=== PATIENT | male | born 1990 | race Asian ===

== ENCOUNTER 2020-02-17 03:41 | Emergency (ER) | payer OTHER ==
[~2020-02-17] VITALS: Ht 167.6 cm; Wt 73.9 kg
[2020-02-17 03:43] VITALS: BP 127/62
--- NOTE | 2020-02-17 04:17 | NUR ---
covid swab sent to lab
== END 2020-02-17 04:17 | disposition home or self-care (01) ==
LOC: ER 03:50
DX: Z11.59 Encounter for screening for other viral diseases (principal); Z91.013 Allergy to seafood
CPT/HCPCS: 99283; C9803; U0003

== ENCOUNTER 2020-04-27 02:43 | Emergency (ER) | payer OTHER ==
[~2020-04-27] VITALS: Ht 167.6 cm; Wt 63.5 kg
[2020-04-27 02:47] VITALS: BP 124/77
--- NOTE | 2020-04-27 02:57 | NUR ---
covid swab collected. sent to lab
== END 2020-04-27 02:58 | disposition home or self-care (01) ==
LOC: ER 02:44
DX: Z20.828 Contact with and (suspected) exposure to other viral communicable diseases (principal); Z91.013 Allergy to seafood
CPT/HCPCS: 99283; C9803; U0003

== ENCOUNTER 2020-05-02 04:38 | Emergency (ER) | payer OTHER ==
[~2020-05-02] VITALS: Ht 167.6 cm; Wt 63.5 kg
[2020-05-02 04:40] VITALS: BP 128/62
== END 2020-05-02 04:54 | disposition home or self-care (01) ==
LOC: ER 04:38
DX: Z20.828 Contact with and (suspected) exposure to other viral communicable diseases (principal)
CPT/HCPCS: 99283; C9803; U0003

== ENCOUNTER 2020-05-09 04:32 | Emergency (ER) | payer OTHER ==
[~2020-05-09] VITALS: Ht 167.6 cm; Wt 63.5 kg
[2020-05-09 04:33] VITALS: BP 124/82
== END 2020-05-09 05:04 | disposition home or self-care (01) ==
LOC: ER 04:32
DX: Z20.828 Contact with and (suspected) exposure to other viral communicable diseases (principal); Z91.013 Allergy to seafood
CPT/HCPCS: 99283; C9803; U0003

== ENCOUNTER 2020-05-16 05:54 | Emergency (ER) | payer OTHER ==
[~2020-05-16] VITALS: Ht 167.6 cm; Wt 63.5 kg
[2020-05-16 05:55] VITALS: BP 124/62
== END 2020-05-16 06:19 | disposition home or self-care (01) ==
LOC: ER 05:56
DX: Z20.828 Contact with and (suspected) exposure to other viral communicable diseases (principal); Z91.013 Allergy to seafood
CPT/HCPCS: 99283; C9803; U0003

== ENCOUNTER 2020-05-23 04:46 | Emergency (ER) | payer OTHER ==
[~2020-05-23] VITALS: Ht 167.6 cm; Wt 63.5 kg
[2020-05-23 04:50] VITALS: BP 128/69
== END 2020-05-23 05:14 | disposition home or self-care (01) ==
LOC: ER 04:46
DX: Z20.828 Contact with and (suspected) exposure to other viral communicable diseases (principal)
CPT/HCPCS: 99283; C9803; U0003

== ENCOUNTER 2020-05-30 04:22 | Emergency (ER) | payer OTHER ==
[~2020-05-30] VITALS: Ht 167.6 cm; Wt 63.5 kg
[2020-05-30 04:28] VITALS: BP 127/76
== END 2020-05-30 04:45 | disposition home or self-care (01) ==
LOC: ER 04:27
DX: Z20.828 Contact with and (suspected) exposure to other viral communicable diseases (principal); Z91.013 Allergy to seafood
CPT/HCPCS: 99283; C9803; U0003

== ENCOUNTER 2020-06-08 04:29 | Emergency (ER) | payer OTHER ==
[~2020-06-08] VITALS: Ht 167.6 cm; Wt 63.5 kg
[2020-06-08 04:31] VITALS: BP 126/67
--- NOTE | 2020-06-08 04:50 | NUR ---
COVID SWAB SENT TO LAB
== END 2020-06-08 04:51 | disposition home or self-care (01) ==
LOC: ER 04:30
DX: Z20.828 Contact with and (suspected) exposure to other viral communicable diseases (principal); Z91.013 Allergy to seafood
CPT/HCPCS: 99283; C9803; U0003

== ENCOUNTER 2020-06-12 01:55 | Emergency (ER) | payer OTHER ==
[~2020-06-12] VITALS: Ht 167.6 cm; Wt 65.3 kg
[2020-06-12 02:13] VITALS: BP 131/77
== END 2020-06-12 03:08 | disposition home or self-care (01) ==
LOC: ER 02:03
DX: Z20.828 Contact with and (suspected) exposure to other viral communicable diseases (principal); Z91.013 Allergy to seafood
CPT/HCPCS: 99283; C9803; U0003

== ENCOUNTER 2020-06-20 04:58 | Emergency (ER) | payer OTHER ==
[~2020-06-20] VITALS: Ht 167.6 cm; Wt 65.3 kg
[2020-06-20 04:59] VITALS: BP 144/84
== END 2020-06-20 05:10 | disposition home or self-care (01) ==
LOC: ER 04:58
DX: Z20.828 Contact with and (suspected) exposure to other viral communicable diseases (principal); Z91.013 Allergy to seafood
CPT/HCPCS: 99283; C9803; U0003

== ENCOUNTER 2020-06-29 04:04 | Emergency (ER) | payer OTHER ==
[~2020-06-29] VITALS: Ht 167.6 cm; Wt 77.1 kg
[2020-06-29 04:07] VITALS: BP 127/68
== END 2020-06-29 04:57 | disposition home or self-care (01) ==
LOC: ER 04:05
DX: Z20.828 Contact with and (suspected) exposure to other viral communicable diseases (principal); Z91.013 Allergy to seafood
CPT/HCPCS: 99283; C9803; U0003

== ENCOUNTER 2020-07-05 04:44 | Emergency (ER) | payer OTHER ==
[~2020-07-05] VITALS: Ht 165.1 cm; Wt 74.8 kg
[2020-07-05 04:48] VITALS: BP 124/61
--- NOTE | 2020-07-05 05:00 | NUR ---
covid swab collected. sent to lab
== END 2020-07-05 05:00 | disposition home or self-care (01) ==
LOC: ER 04:44
DX: Z20.828 Contact with and (suspected) exposure to other viral communicable diseases (principal)
CPT/HCPCS: 99283; C9803; U0003

== ENCOUNTER 2020-07-08 04:54 | Emergency (ER) | payer OTHER ==
[~2020-07-08] VITALS: Ht 165.1 cm; Wt 58.1 kg
[2020-07-08 04:57] VITALS: BP 124/75
== END 2020-07-08 05:12 | disposition home or self-care (01) ==
LOC: ER 04:56
DX: Z20.828 Contact with and (suspected) exposure to other viral communicable diseases (principal)
CPT/HCPCS: 99283; C9803; U0003

== ENCOUNTER 2020-07-11 04:24 | Emergency (ER) | payer OTHER ==
[~2020-07-11] VITALS: Ht 165.1 cm; Wt 58.1 kg
[2020-07-11 04:38] VITALS: BP 121/84
== END 2020-07-11 04:53 | disposition home or self-care (01) ==
LOC: ER 04:25
DX: Z20.828 Contact with and (suspected) exposure to other viral communicable diseases (principal)
CPT/HCPCS: 87426; 99283; C9803; U0003

== ENCOUNTER 2020-07-14 02:52 | Emergency (ER) | payer OTHER ==
[~2020-07-14] VITALS: Ht 165.1 cm; Wt 58.1 kg
[2020-07-14 02:57] VITALS: BP 128/76
== END 2020-07-14 03:17 | disposition home or self-care (01) ==
LOC: ER 02:54
DX: U07.1 COVID-19 (principal)
CPT/HCPCS: 99283; C9803; U0003

== ENCOUNTER 2020-07-14 19:06 | Emergency (ER) | payer OTHER ==
[~2020-07-14] VITALS: Ht 165.1 cm; Wt 74.8 kg
[2020-07-14 19:09] VITALS: BP 132/64
== END 2020-07-14 22:38 | disposition home or self-care (01) ==
LOC: ER 19:08
DX: U07.1 COVID-19 (principal)
CPT/HCPCS: 87426; 99283; C9803 ×2; U0003

== ENCOUNTER 2020-10-29 01:20 | Emergency (ER) | payer OTHER ==
[~2020-10-29] VITALS: Ht 165.1 cm; Wt 74.8 kg
[2020-10-29 01:22] VITALS: BP 123/62
== END 2020-10-29 02:28 | disposition home or self-care (01) ==
LOC: ER 01:26
DX: Z20.822 Contact with and (suspected) exposure to COVID-19 (principal); Z91.013 Allergy to seafood
CPT/HCPCS: 99283; C9803; U0003

== ENCOUNTER 2020-11-12 01:01 | Emergency (ER) | payer OTHER ==
[~2020-11-12] VITALS: Ht 165.1 cm; Wt 74.8 kg
[2020-11-12 01:05] VITALS: BP 119/68
== END 2020-11-12 01:34 | disposition home or self-care (01) ==
LOC: ER 01:02
DX: Z20.822 Contact with and (suspected) exposure to COVID-19 (principal)
CPT/HCPCS: 99283; C9803; U0003

== ENCOUNTER 2020-11-18 00:46 | Emergency (ER) | payer OTHER ==
[~2020-11-18] VITALS: Ht 165.1 cm; Wt 74.8 kg
[2020-11-18 00:46] VITALS: BP 123/65
== END 2020-11-18 02:18 | disposition home or self-care (01) ==
LOC: ER 00:51
DX: Z20.822 Contact with and (suspected) exposure to COVID-19 (principal)
CPT/HCPCS: 99283; C9803; U0003

== ENCOUNTER 2020-11-27 02:12 | Emergency (ER) | payer OTHER ==
[~2020-11-27] VITALS: Ht 165.1 cm; Wt 74.8 kg
[2020-11-27 02:17] VITALS: BP 123/70
== END 2020-11-27 03:52 | disposition home or self-care (01) ==
LOC: ER 02:14
DX: Z20.822 Contact with and (suspected) exposure to COVID-19 (principal)
CPT/HCPCS: 99283; C9803; U0003

== ENCOUNTER 2020-12-02 00:30 | Emergency (ER) | payer OTHER ==
[~2020-12-02] VITALS: Ht 165.1 cm; Wt 74.8 kg
[2020-12-02 00:30] VITALS: BP 124/75
== END 2020-12-02 01:55 | disposition home or self-care (01) ==
LOC: ER 00:34
DX: Z20.822 Contact with and (suspected) exposure to COVID-19 (principal); Z91.013 Allergy to seafood
CPT/HCPCS: 99283; C9803; U0003

== ENCOUNTER 2020-12-10 03:35 | Emergency (ER) | payer OTHER ==
[~2020-12-10] VITALS: Ht 165.1 cm; Wt 74.8 kg
[2020-12-10 03:40] VITALS: BP 121/63
== END 2020-12-10 04:11 | disposition home or self-care (01) ==
LOC: ER 03:40
DX: Z20.822 Contact with and (suspected) exposure to COVID-19 (principal); Z91.013 Allergy to seafood
CPT/HCPCS: 99283; C9803; U0003

== ENCOUNTER 2021-01-01 01:48 | Emergency (ER) | payer OTHER ==
[~2021-01-01] VITALS: Ht 165.1 cm; Wt 74.8 kg
[2021-01-01 01:47] VITALS: BP 125/64
== END 2021-01-01 02:14 | disposition home or self-care (01) ==
LOC: ER 01:48
DX: Z20.822 Contact with and (suspected) exposure to COVID-19 (principal)
CPT/HCPCS: 99283; C9803; U0003

== ENCOUNTER 2021-01-09 04:37 | Emergency (ER) | payer OTHER ==
[~2021-01-09] VITALS: Ht 165.1 cm; Wt 74.8 kg
[2021-01-09 04:50] VITALS: BP 122/63
== END 2021-01-09 05:35 | disposition home or self-care (01) ==
LOC: ER 04:37
DX: Z20.822 Contact with and (suspected) exposure to COVID-19 (principal); Z91.013 Allergy to seafood
CPT/HCPCS: 99283; C9803; U0003

== ENCOUNTER 2021-01-17 05:16 | Emergency (ER) | payer OTHER ==
[~2021-01-17] VITALS: Ht 165.1 cm; Wt 74.8 kg
[2021-01-17 05:16] VITALS: BP 119/70
== END 2021-01-17 05:46 | disposition home or self-care (01) ==
LOC: ER 05:19
DX: Z20.822 Contact with and (suspected) exposure to COVID-19 (principal)
CPT/HCPCS: 99283; C9803; U0003

== ENCOUNTER 2021-01-22 05:34 | Emergency (ER) | payer OTHER ==
[~2021-01-22] VITALS: Ht 165.1 cm; Wt 74.8 kg
[2021-01-22 05:38] VITALS: BP 139/88
== END 2021-01-22 05:44 | disposition home or self-care (01) ==
LOC: ER 05:36
DX: Z20.822 Contact with and (suspected) exposure to COVID-19 (principal)
CPT/HCPCS: 99283; C9803; U0003

== ENCOUNTER 2021-02-01 05:11 | Emergency (ER) | payer OTHER ==
[~2021-02-01] VITALS: Ht 165.1 cm; Wt 74.8 kg
[2021-02-01 05:12] VITALS: BP 125/64
== END 2021-02-01 06:03 | disposition home or self-care (01) ==
LOC: ER 05:13
DX: R05 Cough (principal); Z20.822 Contact with and (suspected) exposure to COVID-19; Z91.013 Allergy to seafood
CPT/HCPCS: 87426; 99283; C9803; J7050; U0003

== ENCOUNTER 2021-02-05 04:57 | Emergency (ER) | payer OTHER ==
[~2021-02-05] VITALS: Ht 165.1 cm; Wt 74.8 kg
[2021-02-05 04:59] VITALS: BP 116/67
== END 2021-02-05 05:54 | disposition home or self-care (01) ==
LOC: ER 04:59
DX: Z20.822 Contact with and (suspected) exposure to COVID-19 (principal)
CPT/HCPCS: 99283; C9803; U0003

== ENCOUNTER 2021-02-15 04:44 | Emergency (ER) | payer OTHER ==
[~2021-02-15] VITALS: Ht 165.1 cm; Wt 74.8 kg
[2021-02-15 04:49] VITALS: BP 126/61
== END 2021-02-15 05:07 | disposition home or self-care (01) ==
LOC: ER 04:50
DX: Z20.822 Contact with and (suspected) exposure to COVID-19 (principal); Z91.013 Allergy to seafood
CPT/HCPCS: 99283; C9803; U0003

== ENCOUNTER 2021-02-20 06:38 | Emergency (ER) | payer OTHER ==
[~2021-02-20] VITALS: Ht 165.1 cm; Wt 74.8 kg
[2021-02-20 06:41] VITALS: BP 125/61
== END 2021-02-20 07:13 | disposition home or self-care (01) ==
LOC: ER 06:40
DX: Z20.822 Contact with and (suspected) exposure to COVID-19 (principal); Z86.16 Personal history of COVID-19; Z91.013 Allergy to seafood
CPT/HCPCS: 99283; C9803; U0003

== ENCOUNTER 2021-02-22 04:20 | Emergency (ER) | payer OTHER ==
[~2021-02-22] VITALS: Ht 165.1 cm; Wt 74.8 kg
[2021-02-22 04:20] VITALS: BP 135/78
== END 2021-02-22 05:24 | disposition home or self-care (01) ==
LOC: ER 04:22
DX: Z20.822 Contact with and (suspected) exposure to COVID-19 (principal); Z86.16 Personal history of COVID-19; Z91.013 Allergy to seafood; R03.0 Elevated blood-pressure reading, without diagnosis of hypertension
CPT/HCPCS: 99283; C9803; U0003

== ENCOUNTER 2021-02-25 03:50 | Emergency (ER) | payer OTHER ==
[~2021-02-25] VITALS: Ht 165.1 cm; Wt 74.8 kg
[2021-02-25 03:50] VITALS: BP 128/67
== END 2021-02-25 04:42 | disposition home or self-care (01) ==
LOC: ER 03:54
DX: Z20.822 Contact with and (suspected) exposure to COVID-19 (principal); Z86.16 Personal history of COVID-19; Z91.013 Allergy to seafood
CPT/HCPCS: 99283; C9803; U0003

== ENCOUNTER 2021-02-26 07:25 | Emergency (ER) | payer OTHER ==
[~2021-02-26] VITALS: Ht 165.1 cm; Wt 74.8 kg
[2021-02-26 07:31] VITALS: BP 132/60
--- NOTE | 2021-02-26 07:53 | NUR ---
BIBS FOR ROUTINE COVID TEST. DENIES ANY SYMPTOMS.
--- NOTE | 2021-02-26 07:54 | NUR ---
COVID SWAB SENT. Patient discharged to home in stable condition. Written and verbal after care instructions given. Patient verbalizes understanding of instruction.
== END 2021-02-26 07:55 | disposition home or self-care (01) ==
LOC: ER 07:31
DX: Z20.822 Contact with and (suspected) exposure to COVID-19 (principal); Z86.16 Personal history of COVID-19
CPT/HCPCS: 87426; 99283; C9803; U0003

== ENCOUNTER 2021-03-06 22:44 | Emergency (ER) | payer OTHER ==
[~2021-03-06] VITALS: Ht 165.1 cm; Wt 68.0 kg
[2021-03-06 22:52] VITALS: BP 121/72
== END 2021-03-07 00:05 | disposition home or self-care (01) ==
LOC: ER 22:50
DX: Z20.822 Contact with and (suspected) exposure to COVID-19 (principal); Z86.16 Personal history of COVID-19
CPT/HCPCS: 99283; C9803; U0003

== ENCOUNTER 2021-03-08 04:35 | Emergency (ER) | payer OTHER, BC ==
[~2021-03-08] VITALS: Ht 165.1 cm; Wt 68.0 kg
[2021-03-08 04:35] VITALS: BP 122/60
== END 2021-03-08 05:49 | disposition home or self-care (01) ==
LOC: ER 04:46
DX: Z20.822 Contact with and (suspected) exposure to COVID-19 (principal); Z86.16 Personal history of COVID-19
CPT/HCPCS: 99283; C9803; U0003

== ENCOUNTER 2021-12-01 18:50 | Emergency (ER) | payer BC, OTHER ==
[~2021-12-01] VITALS: Ht 165.1 cm; Wt 77.1 kg
[2021-12-01 21:10] VITALS: BP 126/78
--- NOTE | 2021-12-01 21:10 | NUR ---
Patient discharged to home in stable condition. Written and verbal after care instructions given. Patient verbalizes understanding of instruction.
--- NOTE | 2021-12-01 21:10 | NUR ---
Patient discharged to home in stable condition. Written and verbal after care instructions given. Patient verbalizes understanding of instruction.
== END 2021-12-01 21:10 | disposition home or self-care (01) ==
LOC: ER 18:54
DX: M79.671 Pain in right foot (principal); Z60.2 Problems related to living alone; Z91.013 Allergy to seafood
CPT/HCPCS: 73610-TC; 73630-TC